=== PATIENT | female | born 1995 | race Two or more races ===

== ENCOUNTER 2023-06-15 15:39 | Emergency (ER) | payer OTHER ==
[~2023-06-15] VITALS: Ht 152.4 cm; Wt 67.2 kg
[2023-06-15 16:00] VITALS: BP 105/76
[2023-06-15 16:35] VITALS: PULSE 82; RESP 15; O2SAT 98
[2023-06-15] MEDS ORDERED: TOB03OS OP (16:43)
== END 2023-06-15 17:27 | disposition home or self-care (01) ==
LOC: ER 15:39
DX: H10.32 Unspecified acute conjunctivitis, left eye (principal); Z79.899 Other long term (current) drug therapy